=== PATIENT | male | born 1975 | race Caucasian/White ===

== ENCOUNTER 2017-08-30 06:57 | Emergency (ER) | payer SELFPAY ==
[~2017-08-30] VITALS: Ht 177.8 cm; Wt 81.6 kg
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
[2017-08-30] MEDS ORDERED: FLUORESCEIN SODIUM OPHTH 1 EA STRIP ONE (07:46)
[2017-08-30] MEDS ORDERED: TETRACAINE HCL/PF 0.5% UD 2 ML BOTTLE ONE (07:47)
[2017-08-30] MEDS ORDERED: GENTAMICIN OPTH SOLN 0.3% 5 ML BOTTLE OP ONE (08:00)
[2017-08-30] MEDS ORDERED: GENTAMICIN OPTH SOLN 0.3% 5 ML BOTTLE ONE (08:10)
--- NOTE | 2017-08-30 08:24 | NUR ---
PT. VERBALIZED UNDERSTANDING OF AFTERCARE INSTRUCTIONS.Patient discharged to home in stable condition. Written and verbal after care instructions given. Patient verbalizes understanding of instruction.
[2017-08-30 08:25] VITALS: BP 156/98
[2017-08-30] MEDS ORDERED: HYDROCODONE/APAP 5/325MG 1 EACH TABLET PO ONE (08:30)
== END 2017-08-30 08:25 | disposition home or self-care (01) ==
LOC: ER 06:57
DX: H57.12 Ocular pain, left eye (principal); I10 Essential (primary) hypertension; Z88.0 Allergy status to penicillin; Z88.1 Allergy status to other antibiotic agents
CPT/HCPCS: A4606; Z7610